=== PATIENT | male | born 1990 | race Caucasian/White ===

== ENCOUNTER 2020-07-19 19:31 | Outpatient (REF) | payer OTHER, SELFPAY ==
--- NOTE | 2020-07-19 19:35 | MR_ITS ---
EXAMINATION: MR KNEE WITHOUT CONTRAST, LEFT CLINICAL INFORMATION: Left knee pain. COMPARISON: Left knee radiographs dated 07/24/2017. TECHNIQUE: MRI of the knee without contrast was performed using routine sequences on a high-field scanner. FINDINGS: MENISCI: Medial Meniscus: Intact. Lateral Meniscus: Intact. LIGAMENTS: Cruciate: Mild increased intrasubstance signal within the anterior cruciate ligament, likely representing normal variation. A remote sprain/partial tear could be considered in the appropriate clinical setting. No associated edema to suggest acute ligament injury. Collateral: Thickening of the medial collateral ligament, consistent with a remote injury. No associated edema to suggest acute injury. Intact fibular collateral ligament. EXTENSOR MECHANISM: Intact. ARTICULAR CARTILAGE/BONE: Patellofemoral Compartment: Normal. Medial Compartment: Normal. Lateral Compartment: Normal. JOINT FLUID AND BURSAE: Trace joint effusion. MUSCLES/TENDONS: There is mild edema partially visualized at the distal aspect of the vastus lateralis as well as along the undersurface of the iliotibial band and anterior aspect of the biceps femoris muscle. Findings could represent mild muscle strains in the appropriate clinical setting. Increased signal within the proximal lateral gastrocnemius muscle, consistent with a mild strain. MR/MR knee LT wo con IMPRESSION: 1. No acute meniscal or ligamentous injury. 2. Possible remote anterior cruciate ligament injury without a measurable ligament defect. Findings may alternatively represent normal variation. 3. Remote medial collateral ligament injury without evidence of acute injury. 4. Trace joint effusion. 5. Partially visualized edema at the distal aspect of the vastus lateralis muscle as well as along the undersurface of the iliotibial band and anterior aspect of the biceps femoris muscle. Findings could represent mild muscle strains. 6. Mild straightening of the visualized lateral gastrocnemius muscle.
== END 2020-07-19 19:32 | disposition home or self-care (01) ==
LOC: HO.MRI 19:31
PROVIDERS: Visit Provider Internal Medicine
DX: M25.562 Pain in left knee (principal)
CPT/HCPCS: 73721

== ENCOUNTER 2020-08-23 10:32 | Outpatient (REF) | payer OTHER, SELFPAY ==
--- NOTE | 2020-08-23 10:38 | XR_ITS ---
EXAMINATION: XR KNEE, BILATERAL XR KNEE, LEFT CLINICAL INFORMATION: Pain right knee. Pain left knee. COMPARISON: 07/24/2017 TECHNIQUE: AP bilateral knees 1 view. Left knee 2 views. FINDINGS: LEFT KNEE: Normal alignment. Joint spaces are maintained. Small suprapatellar effusion. No acute fracture or dislocation seen. RIGHT KNEE: Normal alignment, maintained joint spaces on the AP projection. XR/XR knee standing BI IMPRESSION: No acute osseous abnormality. Small left knee suprapatellar effusion.
--- NOTE | 2020-08-23 10:38 | XR_ITS ---
EXAMINATION: XR KNEE, BILATERAL XR KNEE, LEFT CLINICAL INFORMATION: Pain right knee. Pain left knee. COMPARISON: 07/24/2017 TECHNIQUE: AP bilateral knees 1 view. Left knee 2 views. FINDINGS: LEFT KNEE: Normal alignment. Joint spaces are maintained. Small suprapatellar effusion. No acute fracture or dislocation seen. RIGHT KNEE: Normal alignment, maintained joint spaces on the AP projection. XR/XR knee LT 2V IMPRESSION: No acute osseous abnormality. Small left knee suprapatellar effusion.
== END 2020-08-23 10:33 | disposition home or self-care (01) ==
LOC: HO.HOSX 10:32
PROVIDERS: Visit Provider Orthopaedic Surgery
DX: S89.92XA Unspecified injury of left lower leg, initial encounter (principal); M25.561 Pain in right knee
CPT/HCPCS: 73560; 73565; 99202

== ENCOUNTER 2020-12-06 12:45 | Emergency (ER) | payer OTHER, SELFPAY ==
--- NOTE | ~2020-12-06 | XR_ITS ---
EXAMINATION: Left hand and wrist x-ray CLINICAL INFORMATION: LEFT MIDDLE FINGER INJURY. QUESTION FRACTURE. COMPARISON: None TECHNIQUE: 4 views of the left hand and wrist FINDINGS: There is a nondisplaced fracture of the ulnar side of the distal phalanx of the third finger intra-articular with the DIP joint. No other fracture is seen. Joint spaces are otherwise normal. Soft tissues are normal. XR/XR hand wrist LT IMPRESSION: Nondisplaced fracture of the distal phalanx of the third finger intra-articular with the DIP joint.
[2020-12-06 13:50] VITALS: BP 134/90; PULSE 70; RESP 17; TEMP 37.2; O2SAT 98; BMI 20.8
--- NOTE | 2020-12-06 14:17 | ED.EXTPRO ---
HPI - Extremity Problem General Chief complaint: Extremity Injury, Upper Stated complaint: L MID FINGER INJ Time Seen by Provider: 12/06/20 13:52 Source: patient Mode of arrival: ambulatory Limitations: no limitations History of Present Illness HPI Narrative: Patient states left middle finger pain since this past Saturday while playing flag football. Patient states he jammed his finger into another player. Patient denies any other trauma. Related Data Home Medications Medication Instructions Recorded Confirmed No Known Home Meds 07/06/20 07/06/20 Allergies Allergy/AdvReac Type Severity Reaction Status Date / Time naproxen [NAPROXEN] Allergy Severe ANAPHYLAXIS Verified 12/06/20 13:52 metronidazole [Flagyl] Allergy Unknown congestion Verified 12/06/20 13:52 and sore throat penicillin V Allergy Unknown Hives Verified 12/06/20 13:52 Penicillins [PENICILLINS] Allergy Unknown HIVES Verified 12/06/20 13:52 Eggs Allergy Unknown N/V Uncoded 03/04/18 00:00 Lactose Allergy Unknown GI upset, Uncoded 03/04/18 00:00 diarrhea Review of Systems Review of Systems: Yes all other systems are reviewed and are negative Constitutional: Constitutional: Reports as per HPI and Reports no additional constitutional complaints Eyes: Eyes: Reports as per HPI and Reports no additional eye complaints ENT: Reports system reviewed and no additional complaints, except as documented and Reports as per HPI Cardiovascular: Cardiovascular: Reports as per HPI and Reports no additional cardiovascular complaints Respiratory: Respiratory: Reports as per HPI and Reports no additional respiratory complaints Gastrointestinal: Gastrointestinal: Reports as per HPI and Reports no additional gastrointestinal complaints Genitourinary: Genitourinary: Reports no additional male genitourinary complaints and Reports as per HPI Musculoskeletal: Musculoskeletal: Reports no additional musculoskeletal complaints and Reports as per HPI Comments: Left middle finger pain Neurologic: Reports system reviewed and no additional complaints, except as documented and Reports as per HPI Psychiatric: Psychiatric: Reports no additional psychiatric complaints and Reports as per HPI PMFSH Past Medical History Surgical History No pertinent past surgical history Family History Family History (Updated 11/07/20 @ 10:55 by POORNIMA Mckinney) Father No problems noted. Mother Hypertension Maternal Grandmother Cancer Family/Other Depression Brother No problems noted. Brother No problems noted. Sister No problems noted. Sister No problems noted. Social History Social History (Updated 08/23/20 @ 10:51 by Stefani Edouard CMA) Advance Directives: No Advance Directives Information Provided: No Current occupational status: unemployed Current occupation: Right Handed Physical Exam Vital Signs: Vital Signs: Last Vital Signs Temp 99.0 F 12/06/20 13:50 Pulse 70 12/06/20 13:50 Resp 17 12/06/20 13:50 BP 134/90 H 12/06/20 13:50 Pulse Ox 98 12/06/20 13:50 Body Mass Index 20.8 Const: General: cooperative, healthy appearing, comfortable, no acute distress, well developed, alert, awake and Physically active Orientation/consciousness: patient oriented x3 HENMT: Head: Yes normal to inspection, Yes No palpable skull fracture present, Yes normocephalic and Yes atraumatic Eyes: General: appearance normal, both eyes and all related structures Neck: Neck: Yes normal visual inspection, Yes full ROM, Yes no lymphadenopathy, Yes no meningeal signs, Yes trachea midline, Yes supple and No tender Chest: Chest palpation & inspection: normal inspection of the chest and normal palpation of entire chest wall Resp: Effort & Inspection: normal respiratory effort and able to speak in complete sentences Auscultation: clear to auscultation bilaterally Cardio: Jugular venous distension: no JVD Heart sounds: S1 normal heart sound present and S2 normal heart sound present GI: Inspection: Yes normal to inspection and No abdominal wall ecchymosis Palpation (GI): Soft to palpation, not firm, nontender, no guarding and not rigid : General: No CVA tenderness and Yes no CVA tenderness Back/Spine/Pelvis: Back: no CVA tenderness, No CVA tenderness and No back tenderness Skin: General skin exam: no rashes or lesions noted and elasticity normal Neuro: General: patient oriented x3, no meningeal signs and CN's II-XI intact bilaterally Cranial nerves: Yes CN's II-XII intact bilaterally Extrem: General: Yes normal to inspection and Yes full ROM Psych: Appearance: grossly normal, well kempt and not disheveled Course Course Course Narrative: Patient will be sent for an x-ray. Reevaluation(s) Reevaluation #1: Left hand x-ray shows middle finger D IP fracture. Patient's finger already in a finger splint that he bought [id number]. Patient informed to follow-up with orthopedic surgeon MDM - Extremity (Nontraumatic) MDM Narrative Medical decision making narrative: Finger fracture Discharge Plan Discharge Clinical Impression: Finger fracture Patient Disposition: Home, Self-Care Instructions: Finger Fracture (ED) Additional Instructions: Return to the ED immediately for worsening pain, swelling, redness, blue discoloration of finger, coolness, or any other concerning symptoms. Take [id number] Tylenol for pain Prescriptions: No Action No Known Home Meds RF: 0 Referrals: Jarrod Buckner MD [Physician] - 2 days (Third finger fracture) Interventions: ED Discharge Assessment Last Done: 12/06/20 14:36 Discharge Date/Time: 12/06/20 14:38 Print Language: Swedish
== END 2020-12-06 14:38 | disposition home or self-care (01) ==
PROVIDERS: Emergency Provider Emergency Medicine; PCP Internal Medicine
DX: S62.603A Fracture of unspecified phalanx of left middle finger, initial encounter for closed fracture (principal); X58.XXXA Exposure to other specified factors, initial encounter; Y93.9 Activity, unspecified; Y92.9 Unspecified place or not applicable; Y99.9 Unspecified external cause status; M79.645 Pain in left finger(s); M25.532 Pain in left wrist; M79.642 Pain in left hand; Y93.62 Activity, american flag or touch football; Y92.321 Football field as the place of occurrence of the external cause; Y99.8 Other external cause status; Z79.899 Other long term (current) drug therapy
CPT/HCPCS: 29130; 73110; 73130; 99283

== ENCOUNTER 2020-12-19 09:55 | Outpatient (REF) | payer OTHER, SELFPAY ==
--- NOTE | ~2020-12-19 | XR_ITS ---
EXAMINATION: XR HAND, LEFT CLINICAL INFORMATION: Left hand pain. COMPARISON: Most recent left hand and wrist radiographs dated 12/06/2020 TECHNIQUE: PA, lateral, and oblique views of the left hand. FINDINGS: Redemonstration of a nondisplaced fracture at the ulnar base of the 3rd distal phalanx, unchanged. This remains in near-anatomic alignment. No new fracture or dislocation. No abnormal soft tissue calcification. No joint space narrowing or marginal osteophytes. XR/XR hand LT min 3V IMPRESSION: Distal 3rd phalangeal fracture, unchanged.
== END 2020-12-19 09:56 | disposition home or self-care (01) ==
LOC: HO.HOSX 09:55
PROVIDERS: Visit Provider Orthopaedic Surgery
DX: S62.633A Displaced fracture of distal phalanx of left middle finger, initial encounter for closed fracture (principal)
CPT/HCPCS: 73130; 99202

== ENCOUNTER 2021-01-23 09:14 | Outpatient (REF) | payer OTHER, SELFPAY ==
--- NOTE | ~2021-01-23 | XR_ITS ---
EXAMINATION: XR HAND, LEFT CLINICAL INFORMATION: Left hand pain. COMPARISON: Multiple priors, most recent left hand radiograph dated 12/19/2020. TECHNIQUE: PA, lateral, and oblique views of the left hand. FINDINGS: Redemonstration of a nondisplaced fracture along the ulnar aspect of the distal 3rd phalangeal base. The fracture appears more corticated without significant osseous bridging. No new fracture or dislocation. No osseous erosion. No abnormal soft tissue calcification. XR/XR hand LT min 3V IMPRESSION: Nondisplaced fracture along the ulnar aspect of the distal 3rd phalangeal base without significant osseous bridging. The fracture now appears more corticated.
== END 2021-01-23 09:15 | disposition home or self-care (01) ==
LOC: HO.HOSX 09:14
PROVIDERS: Visit Provider Orthopaedic Surgery
DX: S62.633D Displaced fracture of distal phalanx of left middle finger, subsequent encounter for fracture with routine healing (principal); X58.XXXD Exposure to other specified factors, subsequent encounter
CPT/HCPCS: 73130; 99212

== ENCOUNTER 2021-05-24 13:33 | Outpatient (REF) | payer OTHER, SELFPAY ==
[2021-05-24 15:19] LABS: COVID-19 Test Negative (Negative)
== END 2021-05-24 13:34 | disposition home or self-care (01) ==
LOC: HO.LAB 13:33
PROVIDERS: PCP Internal Medicine; Visit Provider Internal Medicine
DX: Z20.822 Contact with and (suspected) exposure to COVID-19 (principal)
CPT/HCPCS: 36415; 87635; C9803

== ENCOUNTER 2021-08-21 11:51 | Outpatient (REF) | payer OTHER, SELFPAY ==
[2021-08-21 12:53] LABS: Influenza A PCR NEGATIVE (Negative); Influenza B PCR NEGATIVE (Negative); Resp Syncy Virus RNA Qual PCR NEGATIVE (Negative); SARS COV2 PCR INHOUSE NEGATIVE (Negative)
== END 2021-08-21 11:52 | disposition home or self-care (01) ==
LOC: HO.LNP 11:51
PROVIDERS: Visit Provider Physician Assistant
DX: J06.9 Acute upper respiratory infection, unspecified (principal); Z20.822 Contact with and (suspected) exposure to COVID-19
CPT/HCPCS: 0241U

== ENCOUNTER 2022-05-23 11:31 | Outpatient (REF) | payer OTHER, SELFPAY ==
[2022-05-23 12:32] LABS: Influenza A PCR NEGATIVE (Negative); Influenza B PCR NEGATIVE (Negative); Resp Syncy Virus RNA Qual PCR NEGATIVE (Negative); SARS COV2 PCR INHOUSE NEGATIVE (Negative)
== END 2022-05-23 11:32 | disposition home or self-care (01) ==
LOC: HO.LNP 11:31
PROVIDERS: Visit Provider Emergency Medicine
DX: Z20.822 Contact with and (suspected) exposure to COVID-19 (principal); R68.89 Other general symptoms and signs
CPT/HCPCS: 0241U

== ENCOUNTER 2022-09-28 10:18 | Outpatient (REF) | payer OTHER, SELFPAY ==
--- NOTE | ~2022-09-28 | XR_ITS ---
EXAMINATION: XR CHEST CLINICAL INFORMATION: Pleurodynia COMPARISON: 01/17/2018 TECHNIQUE: 2 views of the chest were obtained. FINDINGS: Lungs are well-inflated and clear. Trachea is midline in position. No interstitial disease, consolidation or mass. No pleural effusion or pneumothorax. Cardiac silhouette and pulmonary vessels are normal in size. The mediastinum and diane have normal contour. The visualized bones, and upper abdomen, are unremarkable. XR/XR chest 2V IMPRESSION: No acute cardiopulmonary abnormality.
--- NOTE | ~2022-09-28 | XR_ITS ---
EXAMINATION: XR ELBOW, RIGHT CLINICAL INFORMATION: Right elbow pain COMPARISON: 10/12/2016 TECHNIQUE: AP, lateral, and oblique views of the right elbow. FINDINGS: The bones and soft tissues are normal. No fracture or joint effusion. Alignment is anatomic. Joint spaces are maintained. XR/XR elbow RT 2V IMPRESSION: Normal right elbow.
== END 2022-09-28 10:19 | disposition home or self-care (01) ==
LOC: HO.HMGCX 10:18
PROVIDERS: PCP Internal Medicine; Visit Provider Physician Assistant
DX: M25.521 Pain in right elbow (principal); R07.81 Pleurodynia
CPT/HCPCS: 71046; 73070

== ENCOUNTER 2024-03-09 09:15 | Outpatient (AMB) | payer SELFPAY ==
[2024-03-09 09:29] VITALS: BP 118/74; PULSE 56; TEMP 36.6; O2SAT 97; BMI 22.2
--- NOTE | 2024-03-09 09:29 | AM.OFFWIN_ITS ---
Intake Vital Signs 03/09/24 09:29 Height 5 ft 8 in Weight 66.224 kg BMI 22.2 BP 118/74 Blood Pressure Location Rt brachial Position Sitting Pulse 56 Pulse Source Pulse Oximeter Temp 97.9 F Temp Source Oral Pulse Oximetry (%) 97 Intake Visit Reasons: EP headache stomach pain chest/heart pain subsided Intake Note: pt is here for headache, stomach with chest pain but pain subsided. patient states he was around someone that was covid positive and thinks he may have it also Patient Tobacco Use Status: Never used Tobacco Allergies naproxen [NAPROXEN] Allergy (Severe, Verified 03/09/24 09:29) ANAPHYLAXIS metronidazole [Flagyl] Allergy (Unknown, Verified 03/09/24 09:29) congestion and sore throat penicillin V Allergy (Unknown, Verified 03/09/24 09:29) Hives Penicillins [PENICILLINS] Allergy (Unknown, Verified 03/09/24 09:29) HIVES Eggs Allergy (Unknown, Uncoded 09/28/22 10:09) N/V Lactose Allergy (Unknown, Uncoded 09/28/22 10:09) GI upset, diarrhea Do you need a note to return to daycare/school/sports/work: Yes HPI EP headache stomach pain chest/heart pain subsided HPI Details Patient presents with 2 days of headache abdominal discomfort that radiated to chest and is now subsided. He also notes just generally feeling unwell. Denies vomiting or diarrhea, chest pain cough shortness of breath or nasal congestion He does have a long history of H pylori, GERD, nausea. He has not seen his PCP in 2 years. He has requesting a refill of ondansetron. He was in contact with a person with COVID 4 days ago. He did test himself the following morning after exposure which was negative, likely too soon. [facility] Surgical History No pertinent past surgical history Family History Father No problems noted. Mother Hypertension Maternal Grandmother Cancer Family/Other Depression Brother No problems noted. Brother No problems noted. Sister No problems noted. Sister No problems noted. Social History Patient Tobacco Use Status: Never used Tobacco Current occupational status: unemployed Current occupation: Right Handed Review of Systems Const Reports as per HPI and Reports no additional complaints ENT Reports no additional complaints and Reports as per HPI Card Reports as per HPI and Reports no additional complaints Resp Reports as per HPI and Reports no additional complaints GI Reports as per HPI and Reports no additional complaints Reports no additional complaints and Reports as per HPI Musc Reports no additional complaints and Reports as per HPI Neuro Reports no additional complaints and Reports as per HPI Physical Exam Vital Signs: Last Vital Signs Temp 97.9 F 03/09/24 09:29 Pulse 56 03/09/24 09:29 BP 118/74 03/09/24 09:29 Pulse Ox 97 03/09/24 09:29 BMI result Body Mass Index 22.2 Const General: cooperative, comfortable and no acute distress Orientation/consciousness: patient oriented x3 HEENT Ears: TM's normal bilaterally and EAC's normal General nose exam: Normal external nose present Face and sinus: Yes normal facial exam Mouth: oropharynx normal Throat: Yes posterior oropharynx normal Neck Neck: Yes no lymphadenopathy Resp Effort & Inspection: normal respiratory effort Auscultation: clear to auscultation bilaterally Cardio Rate: regular rate Rhythm: regular rhythm Heart sounds: S1 normal heart sound present and S2 normal heart sound present GI Inspection: Yes normal to inspection Palpation (GI): Soft to palpation, nontender, no guarding and not rigid Auscultation: normal bowel sounds Neuro General: patient oriented x3 Results Reviewed Results Reviewed: EKG reviewed without abnormality except bradycardia rate 52 Assessment & Plan Assessment & Plan (1) GERD (gastroesophageal reflux disease): Code(s): K21.9 - Gastro-esophageal reflux disease without esophagitis Qualifiers: Esophagitis presence: esophagitis presence not specified Qualified Code(s): K21.9 - Gastro-esophageal reflux disease without esophagitis Plan: Ondansetron prescribed. Has PPI already and is taking. ER if worsening symptoms, abdominal pain coffee-ground emesis or refractory emesis. Should follow up with PCPs for possible GI referral. (2) Exposure to COVID-19 virus: Code(s): Z20.822 - Contact with and (suspected) exposure to COVID-19 Plan: Viral swab collected today will report results as available. Rest bland diet as tolerated. Work note given for 2 days. Orders: Orders SARS-CoV2/FLU/RSV Today B34.9 - Viral infection, unspecified Medications: New ondansetron HCl 4 mg PO BID-TID PRN 30 tabs 0RF nausea and vomiting Coding Level of Care Code Est Pt Level 4 (96483) Diagnoses Gastroesophageal reflux disease, unspecified whether esophagitis present K21.9 Esophagitis presence: esophagitis presence not specified Exposure to COVID-19 virus Z20.822
== END 2024-03-09 10:14 | disposition home or self-care (01) ==
PROVIDERS: PCP Internal Medicine; Visit Provider Physician Assistant
DX: K21.9 Gastro-esophageal reflux disease without esophagitis (principal); Z20.822 Contact with and (suspected) exposure to COVID-19
CPT/HCPCS: 99214

== ENCOUNTER 2024-03-09 11:34 | Outpatient (REF) | payer OTHER, SELFPAY ==
[2024-03-09 12:37] LABS: Influenza A PCR NEGATIVE (Negative); Influenza B PCR NEGATIVE (Negative); Resp Syncy Virus RNA Qual PCR NEGATIVE (Negative); SARS COV2 PCR INHOUSE NEGATIVE (Negative)
== END 2024-03-09 11:35 | disposition home or self-care (01) ==
LOC: HO.LNP 11:34
PROVIDERS: Visit Provider Physician Assistant
DX: B34.9 Viral infection, unspecified (principal)
CPT/HCPCS: 0241U

== ENCOUNTER → 2025-03-05 08:31 | Outpatient (BNV) | payer SELFPAY | PROVIDERS: PCP Internal Medicine; Visit Provider Radiology Diagnostic Radiology | DX: R07.9 Chest pain, unspecified (principal) | CPT/HCPCS: 71046 ==

== ENCOUNTER 2025-03-05 08:40 | Emergency (ER) | payer OTHER, SELFPAY ==
--- NOTE | ~2025-03-05 | XR_ITS ---
EXAMINATION: XR CHEST 2 VIEWS HISTORY: cp COMPARISON: There is an is made with the prior examination dated 09/28/2022. FINDINGS: PA and lateral views of the chest are submitted. The lungs are expanded and clear. There is no pleural effusion, pneumothorax, or pulmonary vascular congestion. The heart is normal in size. The bones are intact. XR/XR chest 2V IMPRESSION: No acute cardiopulmonary abnormality. Electronically signed by: Benjamin Webb MD 03/05/2025 09:37 AM EDT
--- NOTE | 2025-03-05 08:42 | ECG_ITS ---
Test Reason : CP Blood Pressure : */* mmHG Vent. Rate : 63 BPM Atrial Rate : 63 BPM P-R Int : 132 ms QRS Dur : 80 ms QT Int : 376 ms P-R-T Axes : 83 61 34 degrees QTcB Int : 384 ms Normal sinus rhythm Normal ECG When compared with ECG of 17-Jan-2018 10:46, No significant change was found Referred By: Generic ED Physician Electronically Signed By: SHARDA BROUSSARD
[2025-03-05 09:01] VITALS: BP 128/79; PULSE 70; RESP 16; TEMP 36.2; O2SAT 97; BMI 20.5
[2025-03-05 09:42] VITALS: BP 133/85; PULSE 67; RESP 13; O2SAT 98
--- NOTE | 2025-03-05 09:47 | ED_ITS ---
HPI - Chest Pain General Chief Complaint: Chest Pain Stated Complaint: Chest Pain Time Seen by Provider: 03/05/25 09:45 Source: patient Mode of arrival: ambulatory Limitations: no limitations History of Present Illness ED Provider: Maryjane Prado PA-C HPI narrative: Patient is a 34 year old assigned male at with a history of GERD presenting to the emergency department today with left sided chest pain. Patient states that over the last day he has had left sided chest pain with deep breathing. Patient states that his mother has a history of CHF and he had a childhood heart murmur so he is concerned about his heart health. Patient denies any dizziness, lightheadedness, abdominal pain, nausea, vomiting, fever, chills, blurry vision, double vision, loss of vision, difficulty breathing, shortness of breath, back pain, night sweats, pain with urination, increased urinary frequency, increased urinary urgency, blood in his urine or stool, syncope or a near syncopal episode, recent trauma or falls, bowel incontinence, bladder incontinence, or any other complaints at this time. Onset (ago): day(s) (1) Related Data Previous Rx's ?Medication ?Instructions ?Recorded ondansetron HCl 4 mg tablet 4 mg PO BID-TID PRN nausea and 03/09/24 vomiting #30 tabs Allergies Allergy/AdvReac Type Severity Reaction Status Date / Time naproxen (NAPROXEN) Allergy Severe ANAPHYLAXIS Verified 03/05/25 09:01 metronidazole (Flagyl) Allergy Unknown congestion Verified 03/05/25 09:01 and sore throat penicillin V Allergy Unknown Hives Verified 03/05/25 09:01 Penicillins (PENICILLINS) Allergy Unknown HIVES Verified 03/05/25 09:01 Eggs Allergy Unknown N/V Uncoded 09/28/22 10:09 Lactose Allergy Unknown GI upset, Uncoded 09/28/22 10:09 diarrhea Review of Systems 2 Constitutional: Constitutional: Reports no additional constitutional complaints, Denies chills, Denies fever(s) and Denies night sweats Eyes: Eyes: Reports no additional eye complaints, Denies blurry vision, Denies change in vision, Denies diplopia, Denies eye discharge, Denies loss of vision and Denies eye pain ENT: Denies dizziness Cardiovascular: Cardiovascular: Reports no additional cardiovascular complaints, Reports chest pain, Denies lightheadedness, Denies Loss of Consciousness and Denies dyspnea Respiratory: Respiratory: Reports no additional respiratory complaints and Denies dyspnea Gastrointestinal: Gastrointestinal: Reports no additional gastrointestinal complaints, Denies abdominal pain, Denies melena, Denies hematochezia, Denies change in bowel habits and Denies change in stool character Genitourinary: Genitourinary: Reports no additional male genitourinary complaints, Denies hematuria, Denies oliguria, Denies difficulty urinating, Denies dysuria, Denies urinary frequency, Denies urinary hesitancy, Denies urinary incontinence and Denies urinary urgency Musculoskeletal: Musculoskeletal: Reports no additional musculoskeletal complaints, Denies numbness and Denies tingling Neurologic: Denies dizziness, Denies loss of vision, Denies numbness and Denies tingling Psychiatric: Psychiatric: Reports no additional psychiatric complaints Endocrine: Endocrine: Reports no additional endocrine complaints Hematologic/Lymphatic: Hematologic/Lymphatic: Reports no additional hematologic/lymphatic complaints Allergic/Immunologic: Allergic/Immunologic: Reports no additional allergic/immunologic complaints [facility] Past Medical History Attestation statement: The following information was validated with the patient. Source: old records reviewed and nursing notes reviewed Surgical History No pertinent past surgical history Family History Family History Father No problems noted. Mother Hypertension Maternal Grandmother Cancer Family/Other Depression Brother No problems noted. Brother No problems noted. Sister No problems noted. Sister No problems noted. Social History Social History Alcohol intake: current Patient Tobacco Use Status: Never used Tobacco Smoked in Last 30 Days: No Substance Use Type: Marijuana Substance Use Frequency: Chronic Longstanding Advance Directives: No Advance Directives Information Provided: No Do you have a plan to hurt others: No Plan Current occupational status: unemployed Current occupation: Right Handed Physical Exam 2 Vital Signs: Vital Signs: Last Vital Signs Temp 98.2 F 03/05/25 12:13 Pulse 64 03/05/25 12:13 Resp 12 03/05/25 12:13 BP 126/88 03/05/25 12:13 Pulse Ox 100 03/05/25 12:13 O2 Del Method Room Air 03/05/25 12:13 BMI result Body Mass Index 20.5 Const: General: cooperative, no acute distress, alert and awake Nutritional Appearance: well nourished Orientation/consciousness: patient oriented x3 HEENT: Head: Yes normal to inspection and Yes atraumatic Ears: hearing grossly normal bilaterally and external ears normal General nose exam: Normal external nose present, no nasal discharge noted and no epistaxis Face and sinus: Yes normal facial exam, No abrasion and No laceration Mouth: Normal oral and palatal mucosa present, no drooling and no muffled voice Eyes: General: appearance normal, both eyes and all related structures P eriorbital: periorbital findings normal Eyelids: Yes eyelids normal C onjunctivae: conjunctivae normal Pupils: Equal, round and reactive pupils present EOM: EOMs intact bilaterally Neck: Neck: Yes normal visual inspection, Yes full ROM and Yes no lymphadenopathy Resp: Effort & Inspection: normal respiratory effort and able to speak in complete sentences Neuro: General: patient oriented x3, moves all extremities and CN's II-XI intact bilaterally Cranial nerves: Yes Equal, round and reactive pupils present Cognition (Neuro): normal cognition Extrem: General: Yes normal to inspection, Yes full ROM and Yes capillary refill normal Psych: Appearance: grossly normal Mental Status: mental status grossly normal Affect: normal affect Attitude: cooperative Thought process: N ormal thought process present Thought content: Normal thought content present Insight: Good insight present (Psych) Medications Administered Discontinued Medications Generic Name Dose Route Start Last Admin Trade Name Freq PRN Reason Stop Dose Admin Acetaminophen 975 mg 03/05/25 11:08 03/05/25 11:13 Acetaminophen 325 Mg Tablet PO 03/05/25 11:09 975 mg ONCE ONE Administration Medical Decision Making Medical Decision Making [facility] Narrative: Patient is a 34 year old assigned male at with a history of GERD presenting to the emergency department today with left sided chest pain. Patient's physical exam was unremarkable. Patient's blood work was unremarkable. Patient's EKG was unremarkable. Patient's chest x-ray showed no acute process. I explained my physical exam findings as well as all test results to the patient. I answered all questions asked by the patient. I stressed the importance of the patient taking his medication as directed (either prescribed or as the over the counter packaging recommends). I stressed the importance of the patient following up with his primary care provider. I stressed the importance of the patient returning to the emergency department immediately if his symptoms were to worsen or if he were to develop any dizziness, shortness of breath, difficulty breathing, chest pain, blurry vision, loss of vision, nausea, vomiting, abdominal pain, fever, chills, back pain, or any other complaints. Patient verbalized agreement and understanding with this treatment plan and discharge. Differential Diagnosis Differential Diagnoses: The differential diagnosis associated with the presentation includes Atypical chest pain Chest wall pain Pleurisy Costochondritis Admission/Observation Consideration of admission/observation: Escalation of care including admission/observation considered Patient would have been admitted to the hospital had his work up had any findings where hospital admission was appropriate and his clinical presentation warranted hospital admission. Lab Data [facility] Lab Attestation statement: I reviewed the patient's lab results. My interpretation of these results are in the [facility] Rationale portion of this note. 03/05/25 09:38 03/05/25 09:38 Labs: Lab Results 03/05/25 03/05/25 Range/Units 09:38 11:02 WBC 4.6 L (4.8-10.8) X10*3/uL RBC 4.99 (4.60-5.80) X10*6/uL Hgb 14.4 (14.0-18.0) g/dl Hct 41.9 L (42.0-52.0) % MCV 84.0 (80.0-98.0) fL MCH 28.9 (27.0-33.0) pg MCHC 34.4 (31.0-36.0) g/dl RDW 13.1 (11.0-16.0) % Plt Count 216 (160-400) X10*3/uL MPV 9.7 (9.4-12.4) fL Immature Gran % (Auto) 0.2 (0.0-0.4) % Neut % (Auto) 58.1 (45-73) % Lymph % (Auto) 30.3 (20-40) % [place] % (Auto) 7.5 (2-11) % Eos % (Auto) 3.5 (0-4) % Baso % (Auto) 0.4 (0-2) % Lymph # (Auto) 1.4 (1.2-4.9) X10*3/uL [place] # (Auto) 0.3 (0.1-1.2) X10*3/uL Eos # (Auto) 0.2 (0.0-0.4) X10*3/uL Baso # (Auto) 0.0 (0.0-0.2) X10*3/uL Abs Immat Gran (auto) 0.01 (0.00-0.03) X10*3/uL Absolute Neuts (auto) 2.6 (2.0-8.3) x10*3/uL Absolute Nucleated RBC 0.000 (0.0-0.012) X10*3/uL Nucleated RBC % (auto) 0.0 (0.0-0.2) /100WBC Sodium 139 (135-145) mmol/L Potassium 4.4 (3.3-5.1) mmol/L Chloride 104 (96-108) mmol/L Carbon Dioxide 30 H (22-29) mmol/L Anion Gap 9 L (12-20) BUN 14 (9-16) mg/dL Creatinine 1.22 (0.5-1.4) mg/dL Estim Creat Clear Calc 73.0 Estimated GFR > 60 Random Glucose 95 (60-115) mg/dL Calcium 9.6 (8.4-10.2) mg/dL Total Bilirubin 0.6 (0.0-1.0) mg/dL AST 20 (5-37) U/L ALT 22 (0-40) U/L Alkaline Phosphatase 36 L (39-117) U/L Troponin I High Sens 5.5 4.3 (<3.5-35.0) ng/L Total Protein 7.7 (6.5-8.0) g/dL Albumin 4.8 (3.5-5.0) g/dL Influenza Type A (PCR) NEGATIVE (Negative) Influenza Type B (PCR) NEGATIVE (Negative) RSV RNA Qual (PCR) NEGATIVE (Negative) SARS-CoV-2 RNA (RT-PCR) NEGATIVE (Negative) Independent Interpretation I performed an independent interpretation of an: EKG and Plain X-Ray Interpretation: My interpretation is in agreement with the radiologist's impression of this imaging study. L EXAMINATION: XR CHEST 2 VIEWS HISTORY: cp COMPARISON: There is an is made with the prior examination dated 09/28/2022. FINDINGS: PA and lateral views of the chest are submitted. The lungs are expanded and clear. There is no pleural effusion, pneumothorax, or pulmonary vascular congestion. The heart is normal in size. The bones are intact. XR/XR chest 2V IMPRESSION: No acute cardiopulmonary abnormality. Electronically signed by: Benjamin Webb MD 03/05/2025 09:37 AM EDT RP Dictated By: Benjamin Webb MD Signed By: Electronically signed by Benjamin Webb MD 03/05/25 0937 I independently interpreted this EKG and am in agreement with the below findings: Vent. Rate: 63 BPM Atrial Rate: 63 BPM P-R Int: 132 ms QRS Dur: 80 ms QT Int: 376 ms P-R-T Axes: 83 61 34 degrees QTcB Int: 384 ms Normal sinus rhythm Normal ECG When compared with ECG of 17-Jan-2018 10:46, No significant change was found DD/ [id number] Radiology Impression Discussion of test interpretation with radiology: I have reviewed the radiologist's reading. Discharge Plan Discharge Clinical Impression: Atypical chest pain Patient Disposition: Home, Self-Care Instructions: Chest Pain (DC) Additional Instructions: Follow up with your primary care provider and given your personal + familial history, a computer installation engineer. Return to the emergency department immediately if your symptoms worsen or if you develop any numbness, tingling, dizziness, shortness of breath, difficulty breathing, chest pain, blurry vision, loss of vision, nausea, vomiting, abdominal pain, fever, chills, back pain, or any other complaints. Please see the information below about our Patient Portal. If you are not yet enrolled in the [facility] Patient Portal, you will receive an enrollment email invitation following your visit to any [facility] care setting. You may also self-enroll in the Patient Portal by visiting our website: [email or web address] The following information is required to access the Patient Portal: - Your [facility] Medical Record Number - Your personal home email address (must match what is in your electronic medical record, Registration staff can assist with this) - Name - Date of Capabilities of the Patient Portal: - Message some providers - View upcoming appointments - Access your health summary, medical history, and visit history - View current conditions and allergies - View procedure and lab results - View your medications, including guidelines, side effects, and precautions - Complete pre-appointment questionnaires requested by your provider - Ready summary reports of your office visits and procedures To access the Patient Portal Mobile Dora, follow these directions: - Search [employer] in the Dora Store or [employer] Store - Download the Dora - Search for [facility] - Enter your login/password Prescriptions: No Action ondansetron HCl 4 mg tablet 4 mg PO BID-TID PRN (Reason: nausea and vomiting) Qty: 30 0RF Referrals: [facility] [Provider Group] Lopez Hughes MD [Primary Care Provider, Internal Medicine] Stand Alone Forms: Work/School Release Interventions: ED Discharge Assessment Last Done: 03/05/25 12:13 Discharge Date/Time: 03/05/25 12:14 Print Language: Taiwanese
--- NOTE | 2025-03-05 09:47 | PC.NURSE ---
Patient is a 34 yo male with no significant past medical history who presents with left sided intermittent chest pain since yesterday at 1230p which worsens with inspiration and movement. java architect applied and NSR noted. Lungs clear bilat. Respirations even and non-labored. Abdomen flat, soft, non-tender with positive bowel sounds. Positive pedal pulses with no edema.
[2025-03-05 10:01] LABS: MANUAL DIFF FLAG NO
[2025-03-05 10:02] LABS: Basophils Percent Auto 0.4 % (0-2); Eosinophils Absolute Auto 0.2 X10*3/uL (0.0-0.4); Eosinophils Percent Auto 3.5 % (0-4); Hematocrit 41.9 % (42.0-52.0); Hemoglobin 14.4 g/dl (14.0-18.0); Imm Gran Abs Auto 0.01 X10*3/uL (0.00-0.03); Imm Gran Pct Auto 0.2 % (0.0-0.4); Lymphocytes Absolute Auto 1.4 X10*3/uL (1.2-4.9); Lymphocytes Percent Auto 30.3 % (20-40); Mean Corpuscular HGB Conc 34.4 g/dl (31.0-36.0); Mean Corpuscular Hemoglobin 28.9 pg (27.0-33.0); Mean Platelet Volume 9.7 fL (9.4-12.4); Monocytes Absolute Auto 0.3 X10*3/uL (0.1-1.2); Monocytes Percent Auto 7.5 % (2-11); Neutrophils Absolute Auto 2.6 x10*3/uL (2.0-8.3); Neutrophils Percent Auto 58.1 % (45-73); Platelet Count 216 X10*3/uL (160-400); Red Blood Count 4.99 X10*6/uL (4.60-5.80); Red Cell Distribution Width 13.1 % (11.0-16.0); White Blood Count 4.6 X10*3/uL (4.8-10.8)
[2025-03-05 10:21] LABS: Alanine Aminotransferase 22 U/L (0-40); Albumin Level 4.8 g/dL (3.5-5.0); Alkaline Phosphatase 36 U/L (39-117); Anion Gap 9 (12-20); Aspartate Amino Transferase 20 U/L (5-37); Bilirubin Total 0.6 mg/dL (0.0-1.0); Blood Urea Nitrogen 14 mg/dL (9-16); Calcium 9.6 mg/dL (8.4-10.2); Carbon Dioxide 30 mmol/L (22-29); Chloride 104 mmol/L (96-108); Estimated Glomerular Filt Rate > 60; Glucose Random 95 mg/dL (60-115); Potassium 4.4 mmol/L (3.3-5.1); Sodium 139 mmol/L (135-145); Total Protein 7.7 g/dL (6.5-8.0)
[2025-03-05 10:27] LABS: Troponin-I High Sensitivity 5.5 ng/L (<3.5-35.0)
[2025-03-05 10:47] LABS: Influenza A PCR NEGATIVE (Negative); Influenza B PCR NEGATIVE (Negative); Resp Syncy Virus RNA Qual PCR NEGATIVE (Negative); SARS COV2 PCR INHOUSE NEGATIVE (Negative)
[2025-03-05 10:59] VITALS: BP 126/88; PULSE 64; RESP 12; TEMP 36.8; O2SAT 100
--- NOTE | 2025-03-05 11:05 | MHC.EDTECH ---
Vitals obtained, second trop collected and sent to lab, call estevez within reach
[2025-03-05] MEDS: Acetaminophen 325 MG TABLET 975 MG PO (11:13)
[2025-03-05 11:36] LABS: Troponin-I High Sensitivity 4.3 ng/L (<3.5-35.0)
[2025-03-05 12:13] VITALS: BP 126/88; PULSE 64; RESP 12; TEMP 36.8; O2SAT 100
== END 2025-03-05 12:14 | disposition home or self-care (01) ==
PROVIDERS: Physician Assistant Medical; Emergency Provider Emergency Medicine; PCP Internal Medicine
DX: R07.89 Other chest pain (principal); Z03.818 Encounter for observation for suspected exposure to other biological agents ruled out
CPT/HCPCS: 0241U; 36415; 71046; 80053; 84484; 85025; 93005; 99283; 99285

== ENCOUNTER → 2025-03-05 08:42 | Outpatient (BNV) | payer SELFPAY | PROVIDERS: Emergency Provider Emergency Medicine; PCP Internal Medicine; Visit Provider Internal Medicine | DX: R07.9 Chest pain, unspecified (principal) | CPT/HCPCS: 93010 ==

== ENCOUNTER 2025-05-11 11:02 | Outpatient (AMB) | payer OTHER, SELFPAY ==
[2025-05-11 11:14] VITALS: BP 118/74; PULSE 70; TEMP 36.7; O2SAT 98; BMI 21.0
--- NOTE | 2025-05-11 11:14 | AM.OFFWIN_ITS ---
Intake Vital Signs 05/11/25 11:14 Height 5 ft 8 in Weight 138 lb BMI 21.0 BP 118/74 Blood Pressure Location Lt brachial Position Sitting Pulse 70 Pulse Source Pulse Oximeter Temp 98.0 F Temp Source Oral Pulse Oximetry (%) 98 Oxygen Delivery Method Room Air Intake Visit Reasons: EP headache, sore throat Intake Note: pt presents with sore throat, pain swallowing and headache Patient Tobacco Use Status: Never used Tobacco Allergies naproxen (NAPROXEN) Allergy (Severe, Verified 05/11/25 11:16) ANAPHYLAXIS metronidazole (Flagyl) Allergy (Unknown, Verified 05/11/25 11:16) congestion and sore throat penicillin V Allergy (Unknown, Verified 05/11/25 11:16) Hives Penicillins (PENICILLINS) Allergy (Unknown, Verified 05/11/25 11:16) HIVES Eggs Allergy (Unknown, Uncoded 09/28/22 10:09) N/V Lactose Allergy (Unknown, Uncoded 09/28/22 10:09) GI upset, diarrhea Do you need a note to return to daycare/school/sports/work: Yes HPI HPI Comments History of Present Illness Details History - The patient is a 34-year-old male pres enting with a headache and sore throat. - The headache began today and is descri bed as severe. - The patient has not yet taken any medi cation except a daily allergy pill, which he started taking yesterday. - Reports sinus pain, potentially due to allergies - denies ear pain, fevers, cough - The patient smokes marijuana. - History of mild asthma with no current inhaler use reported. Physical Exam General: Cooperative, healthy appearing, comfortable and no acute distress Orientation/consciousness: Patient oriented x3 Limitations: No limitations Head: Normal to inspection Ears: Hearing grossly normal bilaterally, external ears normal and TM's normal bilaterally Nose: Normal external nose present, Normal nares present and No nasal discharge present Face and sinus: Normal facial exam and Sinuses tender Mouth: Normal oral and palatal mucosa present and moist mucous membranes Throat: Yes tonsils normal, Yes uvula midline. Posterior oropharynx erythema, no exudates Eyes: Appearance normal, both eyes and all related structures Neck: Normal visual inspection, full ROM Respiratory: Clear to auscultation bilaterally. Normal respiratory effort, able to speak in complete sentences, Not actively coughing, no respiratory distress, not tachypneic, no tripod positioning and no use of accessory muscles Cardiovascular: Regular rate and rhythm. Normal S1 and S2 Skin: No rashes or lesions noted Neuro: Patient oriented x3 Extremities: Normal to inspection and Yes no clubbing, cyanosis or edema PFSH Surgical History No pertinent past surgical history Family History Father No problems noted. Mother Hypertension Maternal Grandmother Cancer Family/Other Depression Brother No problems noted. Brother No problems noted. Sister No problems noted. Sister No problems noted. Social History Alcohol intake: current Patient Tobacco Use Status: Never used Tobacco Substance Use Type: Marijuana Current occupational status: unemployed Current occupation: Right Handed Review of Systems Const All systems reviewed & are unremarkable except as noted in HPI and below Physical Exam Vital Signs: Last Vital Signs Temp 98.0 F 05/11/25 11:14 Pulse 70 05/11/25 11:14 BP 118/74 05/11/25 11:14 Pulse Ox 98 05/11/25 11:14 Oxygen Delivery Method Room Air 05/11/25 11:14 BMI result Body Mass Index 21.0 Assessment & Plan Assessment & Plan (1) URI, acute: Code(s): J06.9 - Acute upper respiratory infection, unspecified Plan: Plan VSS, pt well appearing and PE unremarkable - Rapid strep negative - Recommended rest and hydration. - Consider [id number] analgesics if needed. - Advised to continue allergy medication to manage symptoms. - Suggested use of decongestants like Mucinex or Robitussin. - Viral panel testing ordered to identify specific virus. - Inhaler prescribed for potential respiratory symptoms. Patient was informed and verbally consented to the use of an ambient scribe for clinic note documentation during this visit Orders: Orders Resp Pathogen Panel - [facility] Today J06.9 - Acute upper respiratory infection, unspecified Medications: New albuterol sulfate 90 mcg/actuation 2 puffs inhalation Q6H PRN 8.5 grams 0RF shortness of breath or wheezing or cough Coding Level of Care Code Est Pt Level 3 (61482) Diagnoses URI, acute J06.9
== END 2025-05-11 11:31 | disposition home or self-care (01) ==
PROVIDERS: PCP Internal Medicine; Visit Provider Physician Assistant
DX: Z13.9 Encounter for screening, unspecified (principal)

== ENCOUNTER 2025-05-11 11:02 | Outpatient (REF) | payer OTHER, SELFPAY ==
[2025-05-11 14:07] LABS: Chlamydia pneumoniae PCR Not Detected (Not Detect.); Coronavirus 229E PCR Not Detected (Not Detect.); Coronavirus HKU1 PCR Not Detected (Not Detect.); Coronavirus NL63 PCR Not Detected (Not Detect.); Coronavirus OC43 PCR Not Detected (Not Detect.); RSV PCR Not Detected (Not Detect.); Rhino/Enterovirus PCR Detected (Not Detect.)
[2025-05-11 14:13] LABS: Influenza A H1 PCR Not Detected (Not Detect.); Influenza A H1-2009 PCR Not Detected (Not Detect.); Influenza A H3 PCR Not Detected (Not Detect.); SARS-CoV-2 PCR Not Detected (Not Detect.)
== END 2025-05-11 11:03 | disposition home or self-care (01) ==
LOC: HO.LAB 11:02
PROVIDERS: PCP Internal Medicine; Visit Provider Physician Assistant
DX: J06.9 Acute upper respiratory infection, unspecified (principal); J02.9 Acute pharyngitis, unspecified
CPT/HCPCS: 87633; 87880; 99212